=== PATIENT | male | born 1945 | race Caucasian/White ===

== ENCOUNTER → 2018-04-24 | Outpatient (CLI) | payer BC ==
[2018-04-24 12:22] LABS: BASO % 0.8 %; BASO ABS # 0.04 K/uL (0-0.2); HEMATOCRIT 41.3 % (42-52); HEMOGLOBIN 14.1 g/dL (14.0-18.0); IG# 0.01 K/uL (0.00-0.02); LYMPH % 34.6 %; LYMPH ABS # 1.71 K/uL (1.2-3.4); MEAN CELL VOLUME 93.9 fL (80-100); MEAN CORPUSCULAR HGB CONC 34.1 g/dl (32-36); MONO % 9.5 %; MONO ABS # 0.47 K/uL (0.11-0.59); NEUT % 52.9 %; NEUT ABS # 2.61 K/uL (1.4-6.5); PLATELET COUNT 175 K/uL (130-400); RED CELL DISTRIBUTION WIDTH CV 13.7 % (11.5-14.5); WHITE BLOOD COUNT 4.94 K/uL (4.8-10.8)
[2018-04-24 13:03] LABS: ALBUMIN 3.6 gm/dl (3.4-5.0); ALKALINE PHOSPHATASE 67 U/L (45-117); ALT/SGPT 24 U/L (12-78); AST/SGOT 21 U/L (15-37); BLOOD UREA NITROGEN 12 mg/dl (7-18); CALCIUM 8.3 mg/dl (8.5-10.1); CARBON DIOXIDE 29 mmol/L (21-32); CHOLESTEROL 115 mg/dl (0-200); CREATININE 0.89 mg/dl (0.60-1.40); GLUCOSE 118 mg/dl (70-99); LDL CHOLESTEROL CALCULATED 50 mg/dl; POTASSIUM 3.9 mmol/L (3.5-5.1); SODIUM 140 mmol/L (136-145); TOTAL PROTEIN 6.7 gm/dl (6.4-8.2)
== END | disposition home or self-care (01) ==
LOC: C.LABBFT 08:57
PROVIDERS: ATTEND Internal Medicine
DX: Z12.5 Encounter for screening for malignant neoplasm of prostate (principal); I25.10 Atherosclerotic heart disease of native coronary artery without angina pectoris; R73.9 Hyperglycemia, unspecified

== ENCOUNTER 2022-12-06 15:12 | Inpatient (IN) ==
--- NOTE | 2022-12-06 15:32 | ED Triage Note ---
Date of Service December 06, 2022 History of Present Illness This patient was briefly evaluated while in triage. An abbreviated physical exam was performed. This patient is a 76-year-old Male who presents to the ED for evaluation of shortness of breath. The patient follows with Dr. Lopez, pulmonology for his symptoms, and history of abnormal pulmonary function test. Patient denies any fevers over the next few days. He denies any other sick contacts. Patient does have a prior history of 5 vessel CABG in 2017. He denies any roseanna chest pain, and what discomfort that he has, does not feel like his prior heart attack. Physical Exam CONSTITUTIONAL: Healthy and well nourished. HEENT: Normocephalic, atraumatic. NECK: No obvious JVD or carotid bruits. RESPIRATORY: Clear to auscultation bilaterally with no wheezing, crackles, rhonchi or stridor. CARDIOVASCULAR: Regular rate and rhythm with no murmurs, rubs or gallops. INTEGUMENTARY: No rash or other significant dermatologic conditions noted. HEMATOLOGIC: No ecchymosis or petechiae. PSYCHIATRIC: Positive affect. NEUROLOGIC: No focal neurologic deficits noted. Initial orders for labs and / or imaging were placed and patient was placed in the waiting area until a bed is available. Please see further documentation for the full ED course.
[2022-12-06 16:10] LABS: Basophils # (auto) 0.06 K/uL (0-0.2); Basophils % (auto) 0.7 %; Eosinophils # (auto) 0.03 K/uL (0-0.50); Eosinophils % (auto) 0.3 %; Hematocrit (blood only) 42.5 % (42.0-52.0); Immature Granulocytes # (auto) 0.02 K/uL (0.01-0.20); Immature Granulocytes % (auto) 0.2 %; Lymphocytes # (auto) 1.38 K/uL (1.2-3.4); Lymphocytes % (auto) 15.5 %; Mean Corpuscular Hemoglobin 31.5 pg (25.0-34.0); Mean Corpuscular Hgb Conc 35.3 g/dL (32.0-36.0); Mean Corpuscular Volume 89.3 fL (80.0-100.0); Mean Platelet Volume 10.3 fL (9.4-12.4); Neutrophils # (auto) 6.63 K/uL (1.40-6.50); Neutrophils % (auto) 74.3 %; Platelet Count 358 K/uL (130-400); RDW Coefficient of Variation 13.1 % (11.5-14.5); RDW Standard Deviation 42.8 fL (36.4-46.3); Red Blood Count 4.76 M/uL (4.70-6.10); White Blood Count 8.92 K/ul (4.8-10.8)
--- NOTE | 2022-12-06 16:17 | XRay Report ---
SINGLE VIEW CHEST CLINICAL HISTORY: Atypical chest pain FINDINGS: An AP, portable, upright chest radiograph is compared to study dated 10/24/2022. Correlation is made with chest CT dated 11/25/2022. The patient is status post midline sternotomy. The heart is e nlarged noting atherosclerotic calcification of the thoracic area. The pulmonary vasculature is nonco ngested. Chronic interstitial thickening is seen to previous. There is bibasilar scarring/atelectasis . No airspace consolidation or large pleural effusion is identified. No pneumothorax is seen. The ske letal structures are osteopenic. The bony thorax is grossly intact. IMPRESSION: Cardiomegaly with no acute cardiopulmonary abnormality. ACT 112: Negative or not required by law. Electronically signed by: Cole Mendenhall M.D. 12/06/2022 4:16 PM
[2022-12-06 16:28] LABS: INR 0.9 (0.9-1.1); Partial Thromboplastin Ratio 0.9; Prothrombin Time 9.8 Seconds (9.0-12.0)
--- NOTE | 2022-12-06 16:41 | Electrocardiogram Report ---
Test Reason : Blood Pressure : / mmHG Vent. Rate : 071 BPM Atrial Rate : 071 BPM P-R Int : 144 ms QRS Dur : 068 ms QT Int : 350 ms P-R-T Axes : 004 004 055 degrees QTc Int : 380 ms Poor data quality, interpretation may be adversely affected Sinus rhythm with Premature supraventricular complexes Otherwise normal ECG No previous ECGs available Confirmed by Jalen Mckenzie ([id number]) on 12/06/2022 4:41:09 PM Referred By: Confirmed By:Jalen Mckenzie
--- NOTE | 2022-12-06 16:52 | Emergency Department Note ---
History of Present Illness General Chief Complaint: Shortness of Breath/Dyspnea Stated Complaint: SOB Time Seen by Provider: 12/06/22 16:01 History of Present Illness Provider Complaint: shortness of breath Onset (ago): day(s) (2) Maximum Pain Intensity: 0 Relieved By: + nothing Exacerbated By: + exertion and + coughing Associated symptoms: + cough, + sputum production and + chest congestion; no chest pain, no fever, no wheezing, no orthopnea, no polyuria, no polydipsia, no palpitations, no hemoptysis or no abdominal pain Home Medications Medication Instructions Recorded Confirmed Type aspirin 81 mg tablet,delayed 81 mg PO QAM 05/10/19 12/06/22 History release coenzyme Q10 200 mg capsule 200 mg PO QAM 05/10/19 12/06/22 History multivitamin (Multiple Vitamins 1 tab PO QAM 05/10/19 12/06/22 History tablet) metoprolol succinate 50 mg 50 mg PO BID #180 tabs 12/28/20 12/06/22 Rx tablet,extended release 24 hr nitroglycerin 0.4 mg sublingual 0.4 mg sublingual Q5M PRN chest 07/14/21 Rx tablet pain #25 tabs rosuvastatin 20 mg tablet 20 mg PO PM 10/24/22 12/06/22 History melatonin 3 mg capsule 3 mg PO HS PRN Sleep 11/21/22 12/06/22 History lisinopril 40 mg tablet 40 mg PO QAM #90 tabs 11/24/22 12/06/22 Rx Breo Ellipta 100 mcg-25 mcg/dose 1 inh inhalation DAILY #60 ea 11/29/22 12/06/22 Rx powder for inhalation (fluticasone furoate-vilanterol) diclofenac sodium 75 mg 75 mg PO BID PRN Pain 12/06/22 12/06/22 History tablet,delayed release Allergies Allergy/AdvReac Type Severity Reaction Status Date / Time No Known Allergies Allergy Verified 11/23/22 10:59 Past Med/Surg History Medical History Abnormal PFT Anemia No issued noted on 10/14/22 labs CAD (coronary artery disease) S/p CABG x 5 vessels 2016; cardiac stent [address] Quiñones Chronic hyponatremia Excessive daytime sleepiness Fatigue History of COVID-27 Jan 2022 > still has some residual shortness of breath since then, Symbicort just prescribed Hypercholesteremia Hyperglycemia Hypertension Osteoarthritis Proteinuria Restrictive pattern present on pulmonary function testing Shortness of breath Just prescribed Symbicort, has not yet started, unsure if COPD or asthma dx as of yet Follows with pulm- last seen 10/24/22 Weakness Weight loss Surgical History History of colonoscopy History of surgery on lower extremity right leg with hardware due to a fall History of tonsillectomy History of tooth extraction S/P CABG (coronary artery bypass graft) February 2017 [facility] in [place] S/P coronary artery stent placement 2013 > 1 stent Family History Mother Alzheimer disease Brother Amyotrophic lateral sclerosis Father Myocardial infarction Denies family history of Ovarian cancer Prostate cancer Breast cancer Colorectal cancer Social History Smoking Status: Never smoker Tobacco Type: Pipe Age Started Using Tobacco: 25; Age Quit Using Tobacco: 45; Second Hand Exposure: No; Hx Alcohol Use: Yes Alcohol type: beer Alcohol Intake Frequency: 4 or More x per/Week Alcohol Intake Frequency Comment: has a couple beers per night, 1-2 a night Hx Substance Use: No Preferred Language: Albanian Communication Ability: Effective Visual Impairment: No Limitations Hearing Ability: Use of Hearing Aid Steel Estimator Required: No Beliefs That Will Affect Care: None marital status: Current Living Situation: Alone current occupational status: retired 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, 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 [employer] Feels Safe at Home: Yes Childhood Exposure to Second-Hand Smoke: Yes Diet Comment: low fat, fruits and veggies, avoid red meats caffeine: Yes Dental Care, Regularly: Yes Physical Activity Frequency: Daily Seatbelt Use: always Sunscreen Use: No Assistive Devices: Glasses and Hearing Aid - Bilateral Physical Exam Vital Signs: Vital Signs - 24 hr 12/06/22 15:30 12/06/22 16:04 12/06/22 16:04 Temperature 36.5 C Temperature Source Temporal Artery Sc an Pulse Rate 74 74 Pulse Rate [Apical ] 77 Pulse Rhythm Irregular Pulse Rhythm [Apic al] Irregular Pulse Strength [Ap ical] Normal Respiratory Rate 16 18 18 Respiratory Effort / Characteristics Non-Labored Sponta neous Respiratory Depth Normal Respiratory Patter n Regular Blood Pressure 176/97 H Blood Pressure [Le ft Arm] 161/95 H Blood Pressure Rosie n 123 Blood Pressure Rosie n [Left Arm] 117 Blood Pressure Pos ition [Left Arm] Sitting Pulse Oximetry 90 92 92 Oxygen Delivery Me thod Room Air Room Air Room Air Oxygen Flow Rate Sepsis Recent Feve r Within 48 Hours No Sepsis New/Unexpla ined Change in Men [place] Status No Sepsis Action Take n by Nursing No Action Required 12/06/22 16:39 12/06/22 16:41 12/06/22 17:02 Temperature Temperature Source Pulse Rate Pulse Rate [Apical ] 88 81 Pulse Rhythm Pulse Rhythm [Apic al] Pulse Strength [Ap ical] Respiratory Rate 17 16 Respiratory Effort / Characteristics Non-Labored Respiratory Depth Normal Respiratory Patter n Blood Pressure Blood Pressure [Le ft Arm] 167/93 H 153/98 H Blood Pressure Rosie n Blood Pressure Rosie n [Left Arm] 117 116 Blood Pressure Pos ition [Left Arm] Pulse Oximetry 91 86 L Oxygen Delivery Me thod Room Air Room Air Nasal Cannula Oxygen Flow Rate Sepsis Recent Feve r Within 48 Hours Sepsis New/Unexpla ined Change in Men [place] Status Sepsis Action Take n by Nursing 12/06/22 17:03 12/06/22 18:00 12/06/22 16:54 Temperature Temperature Source Pulse Rate 88 Pulse Rate [Apical ] 84 84 Pulse Rhythm Pulse Rhythm [Apic al] Pulse Strength [Ap ical] Respiratory Rate 18 Respiratory Effort / Characteristics Non-Labored Respiratory Depth Normal Respiratory Patter n Blood Pressure Blood Pressure [Le ft Arm] 167/96 H Blood Pressure Rosie n Blood Pressure Rosie n [Left Arm] 119 Blood Pressure Pos ition [Left Arm] Pulse Oximetry 96 97 Oxygen Delivery Me thod Nasal Cannula Nasal Cannula Oxygen Flow Rate 2 2 Sepsis Recent Feve r Within 48 Hours Sepsis New/Unexpla ined Change in Men [place] Status Sepsis Action Take n by Nursing 12/06/22 17:30 12/06/22 19:09 Temperature Temperature Source Pulse Rate Pulse Rate [Apical ] 85 88 Pulse Rhythm Pulse Rhythm [Apic al] Pulse Strength [Ap ical] Respiratory Rate 16 16 Respiratory Effort / Characteristics Non-Labored Respiratory Depth Normal Respiratory Patter n Blood Pressure Blood Pressure [Le ft Arm] 161/103 H 172/94 H Blood Pressure Rosie n Blood Pressure Rosie n [Left Arm] 122 120 Blood Pressure Pos ition [Left Arm] Pulse Oximetry 95 95 Oxygen Delivery Me thod Nasal Cannula Nasal Cannula Oxygen Flow Rate 2 2 Sepsis Recent Feve r Within 48 Hours Sepsis New/Unexpla ined Change in Men [place] Status Sepsis Action Take n by Nursing Physical Exam: Physical Exam GENERAL: oriented to person, place, and time. appears well-developed and well- nourished. HENT: Exam performed. - Head: Normocephalic and atraumatic. EYES: Conjunctivae and EOM are normal. Right eye exhibits no discharge. Left eye exhibits no discharge. No scleral icterus. NECK: Normal range of motion. Neck supple. No JVD present. CV: Normal rate, regular rhythm, normal heart sounds and intact distal pulses. There is no peripheral edema. Palpable radial pulses bue. PULM/CHEST: Effort normal and breath sounds normal. No respiratory distress. No stridor. no wheezes. no rales. ABD: The abdomen is soft. There is no tenderness. NEURO: Motor and sensation grossly intact. SKIN: Skin is warm and dry. He is not diaphoretic. PSYCH: normal mood and affect. Behavior is normal. Judgment and thought content normal. Course Course 1601: The patient was evaluated in room A3. A complete history and physical exam was performed Cardiac monitoring: An order was placed for continuous cardiac monitoring. The monitor shows a rate of 70 with sinus rhythm interpreted by me 1705: Nursing informed that the patient was becoming hypoxic on room air. 2 L applied to the patient via nasal cannula through the patient's oxygen saturation. 1744: Vital signs stable on supplemental oxygen via nasal cannula. Status post DuoNeb treatment the patient's lungs are clear to auscultation. Patient does have this history of shortness of breath and pulmonology thought that the patient might have some component of obstructive lung disease. COVID influenza RSV swab is still pending Solu-Medrol ordered for the patient. Labs show a white blood cell count of 8.92 hemoglobin 15 coagulation studies and D-dimer negative. Venous blood gas shows a venous pH of 73 with a venous PCO2 of 73. Sodium is 125 down from his baseline of 128-133. Patient not having any neurological dysfunction no seizures no focal neurological deficits. No need for hypertonic saline at this time. Patient will be started on IV fluids. [facility] hypoxia and dyspnea. Dr. Veliz team will be notified. Administered Medications Sodium Chloride (Nss) 500 mls @ 125 mls/hr IV .Q4H BRENDA Stop: 01/05/23 17:59 Last Admin: 12/06/22 18:10 Dose: 125 mls/hr Documented By: PRINCESS Discontinued Medications Albuterol (Albut/Ipratrop 3mg/0.5mg Neb 3 Ml Vial) 3 ml NEB NOW STA; Protocol Stop: 12/06/22 17:05 Last Admin: 12/06/22 17:16 Dose: 3 ml Documented By: PRINCESS Methylprednisolone (Methylprednisolone 125 Mg/2 Ml Vial) 125 mg IV NOW STA Stop: 12/06/22 17:41 Last Admin: 12/06/22 18:11 Dose: 125 mg Documented By: PRINCESS Medical Decision Making Medical Records Attestation: I reviewed the patient's medical records. External medical records reviewed. Patient was seen by pulmonology on November 29, 2022, 1 week ago. He was seen for shortness of breath and they thought was multifactorial due to neuromuscular weakness and asthma he was started on Breo left. Patient was also seen by nephrology on November 21, 2022 for chronic hyponatremia since 2020 and his sodium usually runs 128-133. Laboratory Data Attestation: I reviewed the patient's lab results. 12/06/22 15:39 12/06/22 15:39 Lab Results 12/06/22 12/06/22 12/06/22 Range/Units 15:39 15:39 15:39 WBC 8.92 (4.8-10.8) K/ul RBC 4.76 (4.70-6.10) M/uL Hgb 15.0 (14.0-18.0) g/dl Hct 42.5 (42.0-52.0) % MCV 89.3 (80.0-100.0) fL MCH 31.5 (25.0-34.0) pg MCHC 35.3 (32.0-36.0) g/dL RDW Std Deviation 42.8 (36.4-46.3) fL RDW Coeff of Arnoldo 13.1 (11.5-14.5) % Plt Count 358 (130-400) K/uL MPV 10.3 (9.4-12.4) fL Immature Gran % (Auto) 0.2 % Neut % (Auto) 74.3 % Lymph % (Auto) 15.5 % [place] % (Auto) 9.0 % Eos % (Auto) 0.3 % Baso % (Auto) 0.7 % Neut # (Auto) 6.63 H (1.40-6.50) K/uL Lymph # (Auto) 1.38 (1.2-3.4) K/uL [place] # (Auto) 0.80 H (0.11-0.59) K/uL Eos # (Auto) 0.03 (0-0.50) K/uL Baso # (Auto) 0.06 (0-0.2) K/uL Immature Gran # (Auto) 0.02 (0.01-0.20) K/uL PT 9.8 (9.0-12.0) Seconds INR 0.9 (0.9-1.1) APTT 24.0 (21.0-31.0) Seconds PTT Ratio 0.9 D-Dimer (0-500) ug/L FEU VBG pH (7.36-7.41) VBG pCO2 (38-50) mmHg VBG pO2 mmHg VBG HCO3 mmol/L VBG O2 Saturation % VBG Base Excess mEq/L Sodium 125 L (136-145) mmol/L Potassium 5.1 (3.5-5.1) mmol/L Chloride 85 L (98-107) mmol/L Carbon Dioxide 36 H (21-32) mmol/L Anion Gap 4 (3-11) BUN 9 (6-23) mg/dl Creatinine 0.64 (0.6-1.4) mg/dl Est Cr Clr Drug Dosing 111.0 ml/min Est GFR ( Amer) 110.2 ml/min Est GFR (Non-Af Amer) 95.1 ml/min BUN/Creatinine Ratio 14.1 (10-20) Glucose 87 (70-99(Fasting)) mg/dl Calcium 9.1 (8.6-10.3) mg/dl Total Bilirubin 0.6 (0.2-1.0) mg/dl AST 22 (13-39) U/L ALT 21 (7-52) U/L Alkaline Phosphatase 77 (34-104) U/L Troponin I High Sens 13.2 (0-20) pg/ml B-Natriuretic Peptide (0-100) pg/ml Total Protein 6.9 (6.0-8.3) gm/dl Albumin 4.2 (3.4-5.0) gm/dl Globulin 2.7 (2.5-4.0) gm/dl Albumin/Globulin Ratio 1.6 (0.9-2) Lipase 21 (11-82) U/L SARS-CoV-2 (PCR) (Negative) Influenza Type A (PCR) (Neg) Influenza Type B (PCR) (Neg) RSV (RT-PCR) (Neg) 12/06/22 12/06/22 12/06/22 Range/Units 15:39 16:38 16:38 WBC (4.8-10.8) K/ul RBC (4.70-6.10) M/uL Hgb (14.0-18.0) g/dl Hct (42.0-52.0) % MCV (80.0-100.0) fL MCH (25.0-34.0) pg MCHC (32.0-36.0) g/dL RDW Std Deviation (36.4-46.3) fL RDW Coeff of Arnoldo (11.5-14.5) % Plt Count (130-400) K/uL MPV (9.4-12.4) fL Immature Gran % (Auto) % Neut % (Auto) % Lymph % (Auto) % [place] % (Auto) % Eos % (Auto) % Baso % (Auto) % Neut # (Auto) (1.40-6.50) K/uL Lymph # (Auto) (1.2-3.4) K/uL [place] # (Auto) (0.11-0.59) K/uL Eos # (Auto) (0-0.50) K/uL Baso # (Auto) (0-0.2) K/uL Immature Gran # (Auto) (0.01-0.20) K/uL PT (9.0-12.0) Seconds INR (0.9-1.1) APTT (21.0-31.0) Seconds PTT Ratio D-Dimer 360 (0-500) ug/L FEU VBG pH 7.36 (7.36-7.41) VBG pCO2 73 H (38-50) mmHg VBG pO2 34 mmHg VBG HCO3 41 mmol/L VBG O2 Saturation < 60.0 % VBG Base Excess 12.4 mEq/L Sodium (136-145) mmol/L Potassium (3.5-5.1) mmol/L Chloride (98-107) mmol/L Carbon Dioxide (21-32) mmol/L Anion Gap (3-11) BUN (6-23) mg/dl Creatinine (0.6-1.4) mg/dl Est Cr Clr Drug Dosing ml/min Est GFR ( Amer) ml/min Est GFR (Non-Af Amer) ml/min BUN/Creatinine Ratio (10-20) Glucose (70-99(Fasting)) mg/dl Calcium (8.6-10.3) mg/dl Total Bilirubin (0.2-1.0) mg/dl AST (13-39) U/L ALT (7-52) U/L Alkaline Phosphatase (34-104) U/L Troponin I High Sens (0-20) pg/ml B-Natriuretic Peptide 200 H (0-100) pg/ml Total Protein (6.0-8.3) gm/dl Albumin (3.4-5.0) gm/dl Globulin (2.5-4.0) gm/dl Albumin/Globulin Ratio (0.9-2) Lipase (11-82) U/L SARS-CoV-2 (PCR) (Negative) Influenza Type A (PCR) (Neg) Influenza Type B (PCR) (Neg) RSV (RT-PCR) (Neg) 12/06/22 Range/Units 16:39 WBC (4.8-10.8) K/ul RBC (4.70-6.10) M/uL Hgb (14.0-18.0) g/dl Hct (42.0-52.0) % MCV (80.0-100.0) fL MCH (25.0-34.0) pg MCHC (32.0-36.0) g/dL RDW Std Deviation (36.4-46.3) fL RDW Coeff of Arnoldo (11.5-14.5) % Plt Count (130-400) K/uL MPV (9.4-12.4) fL Immature Gran % (Auto) % Neut % (Auto) % Lymph % (Auto) % [place] % (Auto) % Eos % (Auto) % Baso % (Auto) % Neut # (Auto) (1.40-6.50) K/uL Lymph # (Auto) (1.2-3.4) K/uL [place] # (Auto) (0.11-0.59) K/uL Eos # (Auto) (0-0.50) K/uL Baso # (Auto) (0-0.2) K/uL Immature Gran # (Auto) (0.01-0.20) K/uL PT (9.0-12.0) Seconds INR (0.9-1.1) APTT (21.0-31.0) Seconds PTT Ratio D-Dimer (0-500) ug/L FEU VBG pH (7.36-7.41) VBG pCO2 (38-50) mmHg VBG pO2 mmHg VBG HCO3 mmol/L VBG O2 Saturation % VBG Base Excess mEq/L Sodium (136-145) mmol/L Potassium (3.5-5.1) mmol/L Chloride (98-107) mmol/L Carbon Dioxide (21-32) mmol/L Anion Gap (3-11) BUN (6-23) mg/dl Creatinine (0.6-1.4) mg/dl Est Cr Clr Drug Dosing ml/min Est GFR ( Amer) ml/min Est GFR (Non-Af Amer) ml/min BUN/Creatinine Ratio (10-20) Glucose (70-99(Fasting)) mg/dl Calcium (8.6-10.3) mg/dl Total Bilirubin (0.2-1.0) mg/dl AST (13-39) U/L ALT (7-52) U/L Alkaline Phosphatase (34-104) U/L Troponin I High Sens (0-20) pg/ml B-Natriuretic Peptide (0-100) pg/ml Total Protein (6.0-8.3) gm/dl Albumin (3.4-5.0) gm/dl Globulin (2.5-4.0) gm/dl Albumin/Globulin Ratio (0.9-2) Lipase (11-82) U/L SARS-CoV-2 (PCR) NEGATIVE (Negative) Influenza Type A (PCR) Negative (Neg) Influenza Type B (PCR) Negative (Neg) RSV (RT-PCR) Negative (Neg) Imaging Data Attestation: I personally reviewed and interpreted this imaging study as follows: My Impression: Chest x-ray negative. Airway clear. No pneumothorax. No consolidation. No cardiomegaly or cephalization.. No free air under the diaphragm. No fractures of the skeletal structures. Radiologist's Impression: Chest X-Ray 12/06/22 15:35 SINGLE VIEW CHEST CLINICAL HISTORY: Atypical chest pain FINDINGS: An AP, portable, upright chest radiograph is compared to study dated 10/24/2022. Correlation is made with chest CT dated 11/25/2022. The patient is status post midline sternotomy. The heart is enlarged noting atherosclerotic calcification of the thoracic area. The pulmonary vasculature is noncongested. Chronic interstitial thickening is seen to previous. There is bibasilar scarring/atelectasis. No airspace consolidation or large pleural effusion is identified. No pneumothorax is seen. The skeletal structures are osteopenic. The bony thorax is grossly intact. IMPRESSION: Cardiomegaly with no acute cardiopulmonary abnormality. ACT 112: Negative or not required by law. Electronically signed by: Cole Mendenhall M.D. 12/06/2022 4:16 PM ECG Data Attestation: I personally reviewed and interpreted this ECG as follows: Interpretation: Sinus rhythm with rate of 71. IN 144 QRS [address] ov[address] ST depression. [facility] Narrative 1601: The patient was evaluated in room A3. A complete history and physical exam was performed Cardiac monitoring: An order was placed for continuous cardiac monitoring. The monitor shows a rate of 70 with sinus rhythm interpreted by me 1705: Nursing informed that the patient was becoming hypoxic on room air. 2 L applied to the patient via nasal cannula through the patient's oxygen saturation. 1744: Vital signs stable on supplemental oxygen via nasal cannula. Status post DuoNeb treatment the patient's lungs are clear to auscultation. Patient does h ave this history of shortness of breath and pulmonology thought that the patient might have some component of obstructive lung disease. COVID influenza RSV swab is still pending Solu-Medrol ordered for the patient. Labs show a white blood cell count of 8.92 hemoglobin 15 coagulation studies and D-dimer negative. Venous blood gas shows a venous pH of 73 with a venous PCO2 of 73. Sodium is 125 down from his baseline of 128-133. Patient not having any neurological dysfunction no seizures no focal neurological deficits. No need for hypertonic saline at this time. Patient will be started on IV fluids. [facility] hypoxia and dyspnea. Dr. Veliz team will be notified. Impression & Plan Hypoxia Critical Care Time Critical Care Time: Yes Total Critical Care Time: 60 I have personally spent greater than 60 minutes of critical care time in the direct management of this patient. This includes bedside care, interpretation of diagnostic studies, and testing, discussion with consultants, patient, and family members, and other required patient management activities. This 60 min utes is in excess of all separately billable procedures. Discharge Plan Visit Data Chief Complaint: Shortness of Breath/Dyspnea Stated Complaint: SOB ED Provider: Shaheed Brown Discharge Problem: Hypoxia Patient Disposition: Admitted As Inpatient Forms Stand Alone Forms: My [facility] Prescriptions Prescriptions: No Action lisinopril 40 mg tablet 40 mg PO QAM Qty: 90 3RF aspirin 81 mg tablet,delayed release (DR/EC) 81 mg PO QAM coenzyme Q10 200 mg capsule 200 mg PO QAM multivitamin [Multiple Vitamins] tablet 1 tab PO QAM metoprolol succinate 50 mg tablet extended release 24 hr 50 mg PO BID Qty: 180 3RF nitroglycerin 0.4 mg tablet, sublingual 0.4 mg SL Q5M PRN (Reason: chest pain) Qty: 25 3RF Rx Instructions: every 5 min as needed for chest pain up to 3 doses. melatonin 3 mg capsule 3 mg PO HS PRN (Reason: Sleep) fluticasone furoate-vilanterol [Breo Ellipta] 100-25 mcg/dose blister with device 1 inh inhalation DAILY Qty: 60 2RF diclofenac sodium 75 mg tablet,delayed release (DR/EC) 75 mg PO BID PRN (Reason: Pain) Rx Instructions: take with food rosuvastatin 20 mg tablet 20 mg PO PM Referrals Referrals: Laith Ball MD [Primary Care Provider] -
[2022-12-06 17:00] LABS: Base Excess VBG 12.4 mEq/L; HCO3 VBG 41 mmol/L; Oxygen Saturation VBG < 60.0 %; PCO2 VBG 73 mmHg (38-50); PO2 VBG 34 mmHg; pH VBG 7.36 (7.36-7.41)
[2022-12-06] MEDS ORDERED: ALBUT/IPRATROP 3MG/0.5MG NEB 3 ML VIAL NEB STA (17:04)
[2022-12-06 17:17] LABS: Troponin I High Sensitivity 13.2 pg/ml (0-20)
[2022-12-06 17:26] LABS: Albumin Level 4.2 gm/dl (3.4-5.0); Bilirubin,Total 0.6 mg/dl (0.2-1.0); Calcium 9.1 mg/dl (8.6-10.3); Potassium 5.1 mmol/L (3.5-5.1)
[2022-12-06 17:32] LABS: Albumin Globulin Ratio 1.6 (0.9-2); BUN Creatinine Ratio 14.1 (10-20); D Dimer 360 ug/L FEU (0-500); Est GFR (African American) 110.2 ml/min; Est GFR (Non-African American) 95.1 ml/min; Globulin 2.7 gm/dl (2.5-4.0); Total Protein 6.9 gm/dl (6.0-8.3)
[2022-12-06 17:38] LABS: Influenza A virus by PCR Negative (Neg); Influenza B virus by PCR Negative (Neg); RSV by PCR Negative (Neg); SARS CoV2 RNA(COVID-19) Ceph NEGATIVE (Negative)
[2022-12-06] MEDS ORDERED: methylPREDNISolone 125 MG/2 ML VIAL IV STA (17:40)
[2022-12-06] MEDS ORDERED: SODIUM CHLORIDE 0.9% 500 ML IV SCH (18:00)
--- NOTE | 2022-12-06 20:34 | History & Physical Report ---
Date of Service December 06, 2022 Assessment & Plan (1) Hypoxia: Plan: 76M with history of CAD (s/p elective CABG in 2017, stent in 2013), and hypertension, who presented to the emergency room with increased fatigue, decreased exercise tolerance/DAWSON now admitted for management of dyspnea. Hypoxia/reduced exercise tolerance -Unclear etiology. History of reduced exercise tolerance and dyspnea on exertion since COVID-19 infection. Pulmonary and cardiologic workup to date so far noncontributory. -Full PFT done in 11/02/22: nonspecific spirometry, FEV1 53% predicted, FVC 48% predicted, TLC 48% predicted, DLCO 68% predicted. -PFTs not suggestive of restrictive physiology, per pulmonary visit note. 6- minute walk w/o evidence of clinical desats. -No evidence of bronchiectasis, honeycombing, or ILD on high res CT done 10 days prior to admission. -Recent CK, YAN, aldolase all negative/wnl. -O2 sat responding well to supplementary O2 via NC. Low suspicion for COPD or CHF given recent work-up. * Maintain O2 between 88-92%. Wean NC as tolerated. * Continue home Breo Ellipta Hyponatremia -Na 125 on admission. K 5.1. Serum osmolality-266. TSH wnl -Review of nephrology outpatient note suggests this is chronic. Per note, no suspicion for adrenal, thyroid, or malignant process. -Random cortisol, a.m. cortisol labs pending. -Nephrology consulted. Appreciate recs * Low-sodium diet * Fluid restriction CAD (s/p CABG in 2017) -BNP < 300 on admission. Initial troponin negative. -Recent stress echocardiogram relatively normal. * Continue home metoprolol, lisinopril, aspirin, and rosuvastatin Proteinuria -Elevated 24-hour urine protein (3082.8), free kappa light chain (24.7) prior to admission. -BUN 9, creatinine 0.64, on admission. * Nephrology consult, as above. Code: Full code Dispo: Med-Surg telemetry FEN/GI: Heart healthy DVT Prophylaxis: Aspirin 81 mg PT/OT: Consults: Nephrology (2) CAD (coronary artery disease): (3) Shortness of breath: (4) Chronic hyponatremia: History of Present Illness Primary Care Provider: Laith Ball MD Ace is a 76-year old man with a past medical history of CAD (s/p elective CABG in 2017), hypertension, and a recent history of COVID-19, who presents to the emergency room today after being urged to by his daughter for increased fatigue, hypoxia (home pulse ox desats. to 80s) and dyspnea on exertion. In the ED, vitals revealed slightly elevated BPs and O2 sat in the 90s to mid 80s. Labs were notable for Na-125, K - 5.1, BNP - 200. CXR showed cardiomegaly but otherwise negative for an acute infectious pulmonary process. EKG was mostly normal (sinus rhythm with premature supraventricular complexes). He received a dose of IV methylprednisolone and an albuterol nebulizer and started on normal saline mIVF. On admission, he corroborates HPI but also reports a longer history of decline in stamina since consuelo COVID-27 Jan 2022. Since then, he describes gradually worsening dyspnea on exertion, insomnia/daytime sleepiness, and increased generalized fatigue. Patient has been seen by [facility] pulmonary and has had PFTs done, without evidence of restrictive disease, per pulm visit note. Recent high-resolution CT performed days ago also negative for ILD, bronchiectasis, or honeycombing. Allergies Allergy/AdvReac Type Severity Reaction Status Date / Time No Known Allergies Allergy Verified 11/23/22 10:59 Home Medications Medication Instructions Recorded Confirmed Type aspirin 81 mg tablet,delayed 81 mg PO QAM 05/10/19 12/06/22 History release coenzyme Q10 200 mg capsule 200 mg PO QAM 05/10/19 12/06/22 History multivitamin (Multiple Vitamins 1 tab PO QAM 05/10/19 12/06/22 History tablet) metoprolol succinate 50 mg 50 mg PO BID #180 tabs 12/28/20 12/06/22 Rx tablet,extended release 24 hr nitroglycerin 0.4 mg sublingual 0.4 mg sublingual Q5M PRN chest 07/14/21 12/06/22 Rx tablet pain #25 tabs rosuvastatin 20 mg tablet 20 mg PO PM 10/24/22 12/06/22 History melatonin 3 mg capsule 3 mg PO HS PRN Sleep 11/21/22 12/06/22 History lisinopril 40 mg tablet 40 mg PO QAM #90 tabs 11/24/22 12/06/22 Rx Breo Ellipta 100 mcg-25 mcg/dose 1 inh inhalation DAILY #60 ea 11/29/22 12/06/22 Rx powder for inhalation (fluticasone furoate-vilanterol) diclofenac sodium 75 mg 75 mg PO BID PRN Pain 12/06/22 12/06/22 History tablet,delayed release Past Med/Surg History Medical History Abnormal PFT Anemia No issued noted on 10/14/22 labs CAD (coronary artery disease) S/p CABG x 5 vessels 2016; cardiac stent [address] Quiñones Chronic hyponatremia Excessive daytime sleepiness Fatigue History of COVID-27 Jan 2022 > still has some residual shortness of breath since then, Symbicort just prescribed Hypercholesteremia Hyperglycemia Hypertension Osteoarthritis Proteinuria Restrictive pattern present on pulmonary function testing Shortness of breath Just prescribed Symbicort, has not yet started, unsure if COPD or asthma dx as of yet Follows with pulm- last seen 10/24/22 Weakness Weight loss Surgical History History of colonoscopy History of surgery on lower extremity right leg with hardware due to a fall History of tonsillectomy History of tooth extraction S/P CABG (coronary artery bypass graft) February 2017 [facility] in [place] S/P coronary artery stent placement 2013 > 1 stent Family History Mother Alzheimer disease Brother Amyotrophic lateral sclerosis Father Myocardial infarction Denies family history of Ovarian cancer Prostate cancer Breast cancer Colorectal cancer Social History Smoking Status: Never smoker Tobacco Type: Pipe Age Started Using Tobacco: 25; Age Quit Using Tobacco: 45; Second Hand Exposure: No; Hx Alcohol Use: Yes Alcohol type: beer Alcohol Intake Frequency: 4 or More x per/Week Alcohol Intake Frequency Comment: has a couple beers per night, 1-2 a night Hx Substance Use: No Preferred Language: Norwegian Communication Ability: Effective Visual Impairment: No Limitations Hearing Ability: Use of Hearing Aid [place] Required: No Beliefs That Will Affect Care: None marital status: Current Living Situation: Alone current occupational status: retired 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 Normal conjunctiva, anicteric sclera. Oropharynx normal. Respiratory: Reduced inspiratory effort, CTABL. Tachypneic. Unable to speak in complete sentences. Cardiovascular: Irregular rhythm, normal rate. No murmurs, gallops, or rubs. Slight pedal edema. GI: Soft abdomen with normal bowel sounds heard on auscultation. Nontender x4 quadrants Neuro: Alert and oriented x3. Results & Data Results & Data Vital Signs (Past 12 Hours) Vital Signs Temp Pulse Pulse Resp BP BP Pulse Ox 12/06/22 19:09 88 16 172/94 H 95 12/06/22 17:30 85 16 161/103 H 95 12/06/22 16:54 88 12/06/22 18:00 84 18 167/96 H 97 12/06/22 17:03 84 96 12/06/22 17:02 81 16 153/98 H 86 L 12/06/22 16:41 12/06/22 16:39 88 17 167/93 H 91 12/06/22 16:04 74 18 92 12/06/22 16:04 77 18 161/95 H 92 12/06/22 15:30 36.5 C 74 16 176/97 H 90 O2 Del Method O2 Flow Rate 12/06/22 19:09 Nasal Cannula 2 12/06/22 17:30 Nasal Cannula 2 12/06/22 16:54 12/06/22 18:00 Nasal Cannula 2 12/06/22 17:03 Nasal Cannula 2 12/06/22 17:02 Nasal Cannula 12/06/22 16:41 Room Air 12/06/22 16:39 Room Air 12/06/22 16:04 Room Air 12/06/22 16:04 Room Air 12/06/22 15:30 Room Air Resident Activity Tracking Resident Involvement: Resident Care Provided Care Provided: Adult Hospital Medicine
[2022-12-06] MEDS ORDERED: METOPROLOL SUCC 50MG EXT REL TAB PO STA (21:00)
[2022-12-06] MEDS ORDERED: ROSUVASTATIN CALCIUM 20 MG TAB PO SCH (21:16)
[2022-12-06 22:23] LABS: Base Excess ABG 8.5 mEq/L (-9-1.8); HCO3 ABG 35 mmol/L (19-24); Oxygen Saturation ABG 93.1 % (90-95); PCO2 ABG 57 mmHg (35-46); PO2 ABG 64 mmHg (80-95)
[2022-12-06 22:25] LABS: Allen Test POS (Pos)
--- NOTE | 2022-12-07 04:18 | CT Scan Report ---
Exam(s): CT HEAD Without Contrast EXAM: CT Head Without Intravenous Contrast CLINICAL HISTORY: r/o hematoma. TECHNIQUE: Axial computed tomography images of the head/brain without intravenous contrast. Automated exposure control was utilized for the study. A dose lowering technique was utilized adhering to the principles of ALARA. COMPARISON: MRI examination dated 06/08/2020 FINDINGS: Brain: No intracranial hemorrhage. No significant mass effect. No evidence for cortical infarct. Periventricular and subcortical deep white matter hypodense changes are similar in morphology to the previous MRI examination, accounting for difference in modality technique. Ventricles: Unremarkable. No midline shift or ventriculomegaly. Bones/joints: Unremarkable. No acute fracture. Soft tissues: Unremarkable. Vasculature: Atherosclerotic calcification of the cavernous internal carotid arteries. Sinuses: Unremarkable as visualized. No acute sinusitis. Mastoid air cells: Unremarkable as visualized. No mastoid effusion. IMPRESSION: No acute intracranial process identified. Chronic underlying deep white matter hypodense changes are statistically most consistent with microvascular disease. Electronically signed by: Jhonny Espino MD 12/07/22 04:17 AM
--- NOTE | 2022-12-07 08:09 | Hospitalist Progress Note ---
Date of Service December 07, 2022 Assessment & Plan (1) Hypoxia: Plan: 76M with history of CAD (s/p elective CABG in 2017, stent in 2013), and hypertension, who presented to the emergency room with increased fatigue, decreased exercise tolerance/DAWSON now admitted for management of dyspnea. Hypoxia/reduced exercise tolerance -Unclear etiology. History of reduced exercise tolerance and dyspnea on exertion since COVID-19 infection. Pulmonary and cardiologic workup to date so far noncontributory. -Full PFT done in 11/02/22: nonspecific spirometry, FEV1 53% predicted, FVC 48% predicted, TLC 48% predicted, DLCO 68% predicted. -PFTs not suggestive of restrictive physiology, per pulmonary visit note. 6- minute walk w/o evidence of clinical desats. -No evidence of bronchiectasis, honeycombing, or ILD on high res CT done 10 days prior to admission. -Recent CK, YAN, aldolase all negative/wnl. -O2 sat responding well to supplementary O2 via NC. Low suspicion for COPD or CHF given recent work-up. * Maintain O2 between 88-92%. Wean NC as tolerated. * Continue home Breo Ellipta Hyponatremia -Na 125 on admission. K 5.1. Serum osmolality-266. TSH wnl -Review of nephrology outpatient note suggests this is chronic. Per note, no suspicion for adrenal, thyroid, or malignant process. -Random cortisol, a.m. cortisol labs pending. -Nephrology consulted. Appreciate recs * Low-sodium diet * Fluid restriction CAD (s/p CABG in 2017) -BNP < 300 on admission. Initial troponin negative. -Recent stress echocardiogram relatively normal. * Continue home metoprolol, lisinopril, aspirin, and rosuvastatin Proteinuria -Elevated 24-hour urine protein (3082.8), free kappa light chain (24.7) prior to admission. -BUN 9, creatinine 0.64, on admission. * Nephrology consult, as above. Code: Full code Dispo: Med-Surg telemetry FEN/GI: Heart healthy DVT Prophylaxis: Aspirin 81 mg PT/OT: Consults: Nephrology (2) CAD (coronary artery disease): (3) Shortness of breath: (4) Chronic hyponatremia: Admission and Anticipated Discharge Date Admission Date: December 06, 2022 Results & Data Results & Data Vital Signs (Past 12 Hours) Vital Signs Temp Pulse Pulse Pulse Resp BP BP 12/07/22 07:21 36.6 C 85 18 12/07/22 06:59 91 H 12/07/22 02:20 36.6 C 98 H 157/71 H 12/07/22 02:20 94 H 30 H 12/06/22 22:30 12/06/22 22:30 36.9 C 98 H 161/82 H 12/06/22 23:34 93 H 12/06/22 23:50 96 H 36 H 161/84 H 12/06/22 21:08 36.9 C 98 H 52 H 161/82 H 12/06/22 20:50 90 20 189/88 H 12/06/22 20:22 93 H 16 167/121 H BP Pulse Ox O2 Del Method O2 Flow Rate 12/07/22 07:21 145/91 H 95 Nasal Cannula 2 12/07/22 06:59 12/07/22 02:20 94 Nasal Cannula 2 12/07/22 02:20 12/06/22 22:30 Room Air 12/06/22 22:30 90 Room Air 12/06/22 23:34 12/06/22 23:50 94 Nasal Cannula 2 12/06/22 21:08 90 Room Air 12/06/22 20:50 90 Room Air 12/06/22 20:22 90 Room Air
[2022-12-07 08:32] LABS: Basophils # (auto) 0.01 K/uL (0-0.2); Basophils % (auto) 0.1 %; Hemoglobin 13.9 g/dl (14.0-18.0); Immature Granulocytes # (auto) 0.04 K/uL (0.01-0.20); Immature Granulocytes % (auto) 0.6 %; Lymphocytes # (auto) 0.58 K/uL (1.2-3.4); Lymphocytes % (auto) 8.3 %; Mean Corpuscular Hemoglobin 31.6 pg (25.0-34.0); Mean Corpuscular Hgb Conc 34.8 g/dL (32.0-36.0); Mean Corpuscular Volume 90.9 fL (80.0-100.0); Mean Platelet Volume 9.9 fL (9.4-12.4); Monocytes # (auto) 0.36 K/uL (0.11-0.59); Monocytes % (auto) 5.2 %; Neutrophils # (auto) 5.97 K/uL (1.40-6.50); Neutrophils % (auto) 85.8 %; Platelet Count 327 K/uL (130-400); RDW Coefficient of Variation 13.1 % (11.5-14.5); RDW Standard Deviation 43.7 fL (36.4-46.3); White Blood Count 6.96 K/ul (4.8-10.8)
[2022-12-07] MEDS ORDERED: FLUTICASONE/VILANTEROL 100/25MCG 14 PUFFS/INHALER INH SCH (09:00)
[2022-12-07] MEDS ORDERED: METOPROLOL SUCC 50MG EXT REL TAB PO SCH (09:00)
[2022-12-07] MEDS ORDERED: ASPIRIN 81 MG ECTAB PO SCH (09:00)
[2022-12-07] MEDS ORDERED: lisinopril 40 MG TAB PO SCH (09:00)
[2022-12-07] MEDS ORDERED: POLYETHYLENE (MIRALAX) 17 GM PACK PO SCH (09:00)
[2022-12-07 09:27] LABS: Calcium 8.7 mg/dl (8.6-10.3); Creatinine Clr Calc Pharmacy 114.6 ml/min; Est GFR (African American) 111.7 ml/min; Est GFR (Non-African American) 96.4 ml/min; Phosphorus 5.4 mg/dl (2.5-4.9); Potassium 4.9 mmol/L (3.5-5.1)
--- NOTE | 2022-12-07 16:04 | Discharge Summary ---
Date of Service December 07, 2022 Admission HPI Per Admitting Provider Ace is a 76-year old man with a past medical history of CAD (s/p elective CABG in 2017), hypertension, and a recent history of COVID-19, who presents to the emergency room today after being urged to by his daughter for increased fatigue, hypoxia (home pulse ox desats. to 80s) and dyspnea on exertion. In the ED, vitals revealed slightly elevated BPs and O2 sat in the 90s to mid 80s. Labs were notable for Na-125, K - 5.1, BNP - 200. CXR showed cardiomegaly but otherwise negative for an acute infectious pulmonary process. EKG was mostly normal (sinus rhythm with premature supraventricular complexes). He received a dose of IV methylprednisolone and an albuterol nebulizer and started on normal saline mIVF. On admission, he corroborates HPI but also reports a longer history of decline in stamina since consuelo COVID-27 Jan 2022. Since then, he describes gradually worsening dyspnea on exertion, insomnia/daytime sleepiness, and increased generalized fatigue. Patient has been seen by [facility] pulmonary and has had PFTs done, without evidence of restrictive disease, per pulm visit note. Recent high-resolution CT performed days ago also negative for ILD, bronchiectasis, or honeycombing. Admission Exam Per Admitting Provider General: No acute distress HEENT: PERRLA. Normal conjunctiva, anicteric sclera. Oropharynx normal. Respiratory: Reduced inspiratory effort, CTABL. Tachypneic. Unable to speak in complete sentences. Cardiovascular: Irregular rhythm, normal rate. No murmurs, gallops, or rubs. Slight pedal edema. GI: Soft abdomen with normal bowel sounds heard on auscultation. Nontender x4 quadrants Neuro: Alert and oriented x3. Principal Diagnosis Dyspnea Discharge Exam Constitutional WD/WN, vitals as above Eyes PERRL, conjunctivae normal, anicteric sclerae ENMT external ear and nose normal, oropharynx normal Neck trachea midline, no thyromegaly Respiratory normal respiratory effort Auscultation: + diminished lung sounds; no wheezes Cardiovascular RRR, no murmur, no edema Skin no rashes, warm and dry scar noted on chest from CABG Discharge Data Allergies Allergy/AdvReac Type Severity Reaction Status Date / Time No Known Allergies Allergy Verified 11/23/22 10:59 Consultations 03/28/23 17:47 ED Decision to Admit Stat 12/06/22 21:23 Consult Nephrology Routine Ordered Studies 12/07/22 03:14 CT Brain [CT head/brain wo con] Stat Hospital Course (1) Hypoxia: 76M with history of CAD (s/p elective CABG in 2017, stent in 2013), and hypertension, who presented to the emergency room with increased fatigue, decreased exercise tolerance/DAWSON now admitted for management of dyspnea. Hypoxia/reduced exercise tolerance -Unclear etiology. History of reduced exercise tolerance and dyspnea on exertion since COVID-19 infection. Pulmonary and cardiologic workup to date so far noncontributory. -Full PFT done in 11/02/22: nonspecific spirometry, FEV1 53% predicted, FVC 48% predicted, TLC 48% predicted, DLCO 68% predicted. -PFTs not suggestive of restrictive physiology, per pulmonary visit note. 6- minute walk w/o evidence of clinical desats. -No evidence of bronchiectasis, honeycombing, or ILD on high res CT done 10 days prior to admission. -Recent CK, YAN, aldolase all negative/wnl. -Continue home Breo Ellipta -Per patient, his pulse ox at home was at the lowest 90%, was urged by daughter to go to ED for that reason. Patient is chronically satting 90-95%, his symptoms were not worse last night and have not changed as of today. Given that patient is tolerating room air well, has considerable insight on his illness, and appropriate followup arranged with pulmonology, neurology, nephrology, and the [facility], patient may continue to have his illness worked up in outpatient at this time. Hyponatremia -Na 125 on admission. K 5.1. Serum osmolality-266. TSH wnl -Review of nephrology outpatient note suggests this is chronic. Per note, no suspicion for adrenal, thyroid, or malignant process. -Random cortisol normal, a.m. cortisol labs low 3.18 -follows with nephrology in outpatient CAD(s/p CABG in 2017) -BNP < 300 on admission. Initial troponin negative. -Recent stress echocardiogram relatively normal. * Continue home metoprolol, lisinopril, aspirin, and rosuvastatin Proteinuria -Elevated 24-hour urine protein (3082.8), free kappa light chain (24.7) prior to admission. -BUN 9, creatinine 0.64, on admission. -follows with nephrology in outpatient (2) CAD (coronary artery disease): (3) Shortness of breath: (4) Chronic hyponatremia: Total Time Total Time Spent Total Time Spent (In Minutes): <30 Discharge Plan Discharge Items Patient Disposition: Home - Self-Care Reason For Visit: DYSPNEA/FATIGUE Discharge Diagnosis: Dyspnea Activity: Resume your previous activity Non-emergency contact: Primary Care Provider Call non-emergency contact if: you have any medication questions, your symptoms worsen and your pain is unusual for you Follow-up/Referrals: Laith Ball MD [Primary Care Provider] - Diet: Regular Addtl Attending Provider Instructions: You were admitted to the hospital for shortness of breath and hypoxia. Given that your condition has not acutely worsened and you are tolerating room air well, we feel it is safe for you to return home at this time. This appears to be an ongoing chronic condition. You have appropriate outpatient follow up already arranged. Please keep your upcoming appointments with neurology, pulmonology, nephrology, and [facility] clinic. For normal individuals, a pulse oxygen of above 90% can be considered normal. If it dips below 87%, this is an indication to see a doctor urgently, or go to the ED. If your pulse oxygen looks fine but you are still having difficulty breathing at rest, this is also an indication to go to the ED. A discharge summary will be sent to your primary care physician to ensure continuity of care. Please bring this discharge summary with you to your next office appointment so that your provider can review it at that time. Follow-up appointments: Make a follow-up appointment with your PCP within the next week. It is very important that you follow up with them shortly after discharge from the hospital. Keep all your follow-up appointments as already scheduled. If you cannot make an appointment, notify your provider. Medications: Your medication list has been reviewed and reconciled upon discharge to ensure accuracy and continuity of care. An updated list of all your medications is included with your hospital discharge paperwork. Please review this list closely, and make note of any changes. Take your medications as instructed; do not skip a dose of your medicines. Make sure all of your doctors know every medicine you are taking (including [id number] medicines, vitamins, and supplements). Call your primary care provider before taking any new medicines (including [id number] medicines, vitamins, and supplements), because some of these may interact with your current medications, or may make your symptoms worse. Tell your primary care provider if you cannot afford your medications. CONTACT YOUR PRIMARY CARE PROVIDER if you experience any of the following: Increased difficulty breathing Increased dizziness, lightheadedness, worsening fatigue Difficulty following your treatment plan, or difficulty taking medications CALL 911 OR GO TO THE EMERGENCY DEPARTMENT if you experience any of the following: Sudden, severe abdominal pain or nausea/vomiting Severe chest pain, or chest pain that radiates (moves) to your jaw or arm Sudden, severe shortness of breath or difficulty breathing Thank you for allowing us to participate in your care. Pending Studies at Discharge: No Stand-Alone Forms: My [facility], Smoking Cessation Medications and DC Order Prescriptions: Continued lisinopril 40 mg tablet 40 mg PO QAM Qty: 90 3RF aspirin 81 mg tablet,delayed release (DR/EC) 81 mg PO QAM coenzyme Q10 200 mg capsule 200 mg PO QAM multivitamin [Multiple Vitamins] tablet 1 tab PO QAM metoprolol succinate 50 mg tablet extended release 24 hr 50 mg PO BID Qty: 180 3RF nitroglycerin 0.4 mg tablet, sublingual 0.4 mg SL Q5M PRN (Reason: chest pain) Qty: 25 3RF Rx Instructions: every 5 min as needed for chest pain up to 3 doses. melatonin 3 mg capsule 3 mg PO HS PRN (Reason: Sleep) fluticasone furoate-vilanterol [Breo Ellipta] 100-25 mcg/dose blister with device 1 inh inhalation DAILY Qty: 60 2RF diclofenac sodium 75 mg tablet,delayed release (DR/EC) 75 mg PO BID PRN (Reason: Pain) Rx Instructions: take with food rosuvastatin 20 mg tablet 20 mg PO PM Discharge Orders: Discharge Order (Routine); Ordered 12/07/22 Ordered By: Payal Hunter Admission Data Admit Date/Time: 12/06/22 19:57 Attending Provider: Yoel Woodall Admit Provider: Roberth Donald Primary Care Provider: Laith Ball Other Providers: Laith Veliz ; Santiago Cordero ; Elba Roberts Kevin C. ; Katie Bee Other Interventions: Discharge Summary Assessment (RN) Last Done: 12/07/22 16:00 Supervising Physician Co-Signing Physician Notes I personally examined the patient and verified all velazco points of history and exam, discussed case, and agree with decision making with Dr Hunter Feels okay and would very much want to go home. Walking the halls without oxygen and no dyspnea, no hypoxia. Outpatient records, including CT PFTs and prior labs noted. Patient notes that he has follow-up tomorrow. It is believed to be with neurology, although it may be pulmonary. Vitals noted, in general he is awake and alert pleasant no distress. HEENT normocephalic atraumatic mucous membranes moist. Breathing unlabored no accessory muscle use ambulating on room air no distress at all. Neuro without focal deficits. Chronic combinedpredominantly hypoventilatory (hypercapnic) 2 degree hypoxic respiratory failureextensive and thorough work-up underway by jonathan appear to point in the direction of neuromuscular processes/respiratory muscle weakness, given that his PFTs appear restrictive, but he does not have pulmonary fibrosis/etc., nor does he have a body habitus consistent with OHS. Believes he has neurology follow-up tomorrow, if not it is with pulmonary, and neuro follow- up has been scheduled for the near future. Given his strong desire to go home and overall stable state of illness, safe/reasonable for him to go home. Of note, in the midst of his work-up and a.m. cortisol was low this morning at 3.18, but it was also in the context of having had 125 mg of Solu-Medrol IV only about 14 hours prior, so I doubt this is totally reliable. Adrenal testing is quite reasonable to do in more detail, but is probably better done as an outpatient. Hyponatremiafollowing actively with nephrology, sodium 128 today, safe for home with close follow-up in that respect as well. Resident Activity Tracking Resident Involvement: Resident Care Provided Care Provided: Adult Hospital Medicine
--- NOTE | 2022-12-07 17:04 | Nephrology Consultation ---
Date of Consultation December 07, 2022 Assessment & Plan (1) Chronic hyponatremia: (2) Hypoxia: (3) Weakness: (4) Proteinuria: (5) Fatigue: Plan Chronic hyponatremia since 2020, Na around 128 to 133. No h/o hypothyroidism or adrenal insufficiency or personal h/o malignancy. SIADH ? low solute intake. Recent incidental finding of 3.5 gm proteinemia w/u including renal USG was negative. Admitted with hypoxia but all w/u was unremarkable, including recent extensive pulmonary w/u. Overall seems to be at his baseline. Na was 124 on admission, improved to 128 this am and currently asymptomatic. --continue to liberalize salt in diet, avoid excessive free water intake --if sodium remains low and BP elevated, consider starting on Lasix. --scheduled for f/u in office F/U as currently scheduled. Thank you for allowing me to participate in your patient's care. It was a pleas ure to see Ace. History of Present Illness Requesting Physician: Hyponatremia, proteinuria, low O2 sat at homw. Attending Physician: Yoel Woodall DO History of Present Illness Mr. Ace Miranda is a 76-year old man with PMH of CAD, chronic hyponatremia, CAD s/p CABG in 2016, hypertension, and COVID-19 in 2021 with concern for long COVID, admitted yesterday with hypoxia on RA at home. Nephrology consult requested for hyponatremia, proteinuria. EMR records were reviewed during visit. Ace presented to the ER yesterday after being urged to by his daughter for increased fatigue, hypoxia, home pulse ox to 80s and dyspnea on exertion. In ER, vitals revealed slightly elevated BPs and O2 sat in the 90s. Labs were notable for Na-125, K - 5.1, BNP - 200. CXR showed cardiomegaly but otherwise negative for an acute infectious pulmonary process or congestion. EKG was mostly normal (sinus rhythm with premature supraventricular complexes). He received a dose of IV methylprednisolone and an albuterol nebulizer and started on normal saline. Na improved to 128 this morning, has normal renal function, b/l cr 0.7 to 0.8. He has been noticing decline in stamina since having COVID-27 Jan 2022. Since then, he describes gradually worsening dyspnea on exertion, insomnia/daytime sleepiness, and increased generalized fatigue.He was evaluated by pulmonary and has had PFTs done, without evidence of restrictive disease, CT was negative for ILD, bronchiectasis. He is waiting on evaluation at [facility]. He was recently seen at the CKD clinic 2 weeks ago for chronic hyponatremia, serum sodium has been variable from 128-133 at least since 2020. Has not been on any thiazide diuretics. No history of diabetes, CHF. Nonsmoker, recent chest CT was unremarkable. No history of hypothyroidism or adrenal insufficiency. Had colonoscopy before, had benign polyp. No personal history of malignancy. He also reports 12 lb weight loss over last 6 months and generally his appetite has been low. Previously has been following low-salt diet but recently started adding salt in his diet after noted to have hyponatremia. Denies history of chronic diarrhea or volume depletion. Denies any history of DM, severe cardiom yopathy or congestive heart failure. Renal function was normal, creatinine was 0.8 and all other electrolyte within normal limit.Previous urinalysis was negative for proteinuria, hematuria pyuria although has prior history of microscopic hematuria and Urology has been planning a cystoscopy in future but he denied having any episode of gross hematuria. f/h of CAD, no malignancy, CKD, ESRD. Drinks 1 alcoholic drink/night. 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 W/U after initial visit showed high grade proteinuria, need to have 3.5 g of proteinuria on 24 hour urine but workup including serology and paraproteinemia workup was unremarkable. Renal USG unremarkable. Hypertension for >20 years, on Lisinopril 20 mg and metoprolol 50 mg bid, seems suboptimally controlled. h/o CAD s/p CABG. COVID in January 2022, since then noticed gradually worsening dyspnea on exertion and fatigue.Pulmonary w/u was unremarkable and now waiting on evaluation at [facility]. Overall he was feeling well this morning and seems to be at his baseline. Na improved to 128. Allergies Allergy/AdvReac Type Severity Reaction Status Date / Time No Known Allergies Allergy Verified 11/23/22 10:59 Home Medications Medication Instructions Recorded Confirmed Type aspirin 81 mg tablet,delayed 81 mg PO QAM 05/10/19 12/06/22 History release coenzyme Q10 200 mg capsule 200 mg PO QAM 05/10/19 12/06/22 History multivitamin (Multiple Vitamins 1 tab PO QAM 05/10/19 12/06/22 History tablet) metoprolol succinate 50 mg 50 mg PO BID #180 tabs 12/28/20 12/06/22 Rx tablet,extended release 24 hr nitroglycerin 0.4 mg sublingual 0.4 mg sublingual Q5M PRN chest 07/14/21 0 12/06/22 Rx tablet pain #25 tabs rosuvastatin 20 mg tablet 20 mg PO PM 10/24/22 12/06/22 History melatonin 3 mg capsule 3 mg PO HS PRN Sleep 11/21/22 12/06/22 History lisinopril 40 mg tablet 40 mg PO QAM #90 tabs 11/24/22 12/06/22 Rx Breo Ellipta 100 mcg-25 mcg/dose 1 inh inhalation DAILY #60 ea 11/29/22 12/06/22 Rx powder for inhalation (fluticasone furoate-vilanterol) diclofenac sodium 75 mg 75 mg PO BID PRN Pain 12/06/22 12/06/22 History tablet,delayed release Patient History Medical History Abnormal PFT Anemia No issued noted on 10/14/22 labs CAD (coronary artery disease) S/p CABG x 5 vessels 2016; cardiac stent [address] Quiñones Chronic hyponatremia Excessive daytime sleepiness Fatigue History of COVID-27 Jan 2022 > still has some residual shortness of breath since then, Symbicort just prescribed Hypercholesteremia Hyperglycemia Hypertension Osteoarthritis Proteinuria Restrictive pattern present on pulmonary function testing Shortness of breath Just prescribed Symbicort, has not yet started, unsure if COPD or asthma dx as of yet Follows with pulm- last seen 10/24/22 Weakness Weight loss Surgical History History of colonoscopy History of surgery on lower extremity right leg with hardware due to a fall History of tonsillectomy History of tooth extraction S/P CABG (coronary artery bypass graft) February 2017 [facility] in [place] S/P coronary artery stent placement 2014 > 1 stent Family History Mother Alzheimer disease Brother Amyotrophic lateral sclerosis Father Myocardial infarction Denies family history of Ovarian cancer Prostate cancer Breast cancer Colorectal cancer Social History Smoking Status: Never smoker Tobacco Type: Pipe Age Started Using Tobacco: 25; Age Quit Using Tobacco: 45; Second Hand Exposure: No; Do You Dip or Chew Tobacco: No; Tobacco Cessation Education Requested by Patient: No Hx Alcohol Use: Yes Alcohol type: beer Alcohol Intake Frequency: 4 or More x per/Week Alcohol Intake Frequency Comment: has a couple beers per night, 1-2 a night Hx Substance Use: No Preferred Language: Albanian Communication Ability: Effective Visual Impairment: No Limitations Hearing Ability: Use of Hearing Aid Sheet Writer Required: No Beliefs That Will Affect Care: None marital status: Current Living Situation: Alone current occupational status: retired 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 Physical Exam Constitutional: WD/WN, vitals as above no acute distress Eyes: + anicteric sclerae Neck: normal visual inspection Respiratory: no respiratory distress Auscultation: lungs clear to auscultation bilaterally Cardiovascular: Rate/Rhythm: regular rate and regular rhythm Heart Sounds: normal S1 and normal S2 Extremities: no edema Skin: no rashes Neurologic: no focal motor deficits and not confused Psychiatric: Orientation: alert and oriented x 3 Results & Data Vital Signs (Past 12 Hours) Vital Signs Temp Pulse Pulse Pulse Resp BP BP 12/07/22 16:00 36.7 C 93 H 82 20 118/64 145/91 H 12/07/22 15:39 84 12/07/22 11:26 36.7 C 82 20 118/64 12/07/22 07:21 36.6 C 85 18 145/91 H 12/07/22 06:59 91 H Pulse Ox O2 Del Method O2 Flow Rate 12/07/22 16:00 95 12/07/22 15:39 12/07/22 11:26 12/07/22 07:21 95 Nasal Cannula 2 12/07/22 06:59 PG Care Time/CCT Total # of Minutes Spent Total Time Spent with Patient: Total time spent is greater than 50% in coordination of care (as documented) at patient's floor/unit and/or counseling patient: Coding Level of Care Code 63131 IN/OBS CONSULT LVL 4,60M Diagnoses Chronic hyponatremia E87.1 Hypoxia R09.02 Weakness R53.1 Proteinuria R80.9 Fatigue R53.83
--- NOTE | 2022-12-07 17:11 | Billing Data ---
Date of Service December 07, 2022 Coding Level of Care Code 35272 IN/OBS DISCH 30 MIN/LESS
--- NOTE | 2022-12-07 17:12 | Billing Data ---
Date of Service December 07, 2022 Coding Level of Care Code 97768 IN/OBS DISCH 30 MIN/LESS
== END 2022-12-07 16:39 | disposition home or self-care (01) | DRG 204 ==
LOC: ED 15:12 → SUATTDRO 19:57 → 2N 19:57